=== PATIENT | female | born 1995 ===

== ENCOUNTER 2018-02-06 01:45 | Emergency (ER) | payer OTHER ==
[2018-02-06] MEDS ORDERED: Acetaminoph/Cod 120/12 mg LIQ* 5 ML UDC PO ONE (04:12)
[2018-02-06 04:49] VITALS: BP 0/0
--- NOTE | 2018-02-06 08:18 | RAD ---
Indication: The patient choked on a fish bone Comparison: None. Technique: AP and lateral views of the neck with soft tissue technique. Report: Unremarkable soft tissue contours. No radiographically apparent foreign body is seen. Pharyngeal, laryngeal, and tracheal air columns are normal in contour. The epiglottis is normal. There is nonspecific reversal of the normal cervical lordosis. IMPRESSION: No radiographically apparent foreign body or other acute abnormality. If the patient's symptoms persist, follow-up imaging is recommended.
--- NOTE | 2018-02-06 15:17 | ED ---
Josephine Burris Gabriel, scribed for Kenneth Bullard MD on 02/06/18 at 0252 . Throat Pain/Nasal Congestion - HPI Summary HPI Summary: Patient is a 22 year old F presenting to [facility] accompanied by her boyfriend with a chief complaint of a sensation of fish bone stuck in her throat at 1300 while she was eating. Pt believes she got a bone from an eel stuck in her throat while she was eating. The patient rates the pain 6/10 in severity. The patient is coughing and states she can feel the bone and it is painful. Pt denies any JOSE ALEJANDRO or difficulty swallowing. - History of Current Complaint Chief Complaint: EDForeignBodyEsophag Time Seen by Provider: 02/06/18 02:43 Hx Obtained From: Patient Onset/Duration: Still Present Severity: Moderate Associated Signs And Symptoms: Positive: Negative - Allergies/Home Medications Allergies/Adverse Reactions: Allergies Allergy/AdvReac Type Severity Reaction Status Date / Time No Known Allergies Allergy Verified 02/06/18 01:50 PMH/Surg Hx/FS Hx/Imm Hx Endocrine/Hematology History: Denies: Hx Blood Transfusions, Hx Bone Marrow Disease, Hx Diabetes Cardiovascular History: Denies: Hx Angioplasty, Hx Atrial Fibrillation Neurological History: Denies: Hx CVA, Hx Dementia - Immunization History Date of Tetanus Vaccine: utd Date of Influenza Vaccine: none Infectious Disease History: No Infectious Disease History: Denies: Traveled Outside the [place] in Last 30 Days - Family History Known Family History: Negative: Blood Disorder - Social History Occupation: Student Lives: Dormitory/Roommates Alcohol Use: Weekly Substance Use Type: Reports: None Smoking Status (MU): Never Smoked Tobacco Review of Systems Positive: Other - pain in throat, foreign body Positive: Cough All Other Systems Reviewed And Are Negative: Yes Physical Exam - Summary Physical Exam Summary: Appearance: Well-appearing, no distress, Well-nourished Skin: Warm, color reflects adequate perfusion Head: Normal Head/Face inspection Eyes: Conjunctiva clear ENT: oropharynx is clear. She is TTP at the left anterior pharynx area, no swelling Neck: Supple, no nodes, no JVD. Respiratory: Lungs clear, Normal breath sounds, no respiratory distress Cardio: RRR, No murmur, pulses normal, brisk capillary refill Neuro: Alert, speech normal, sensory/motor intact Psychological: Normal Triage Information Reviewed: Yes Vital Signs On Initial Exam: Initial Vitals Temp Pulse Resp BP Pulse Ox 97.1 F 97 16 133/75 100 02/06/18 01:47 02/06/18 01:47 02/06/18 01:47 02/06/18 01:47 02/06/18 01:47 Vital Signs Reviewed: Yes Diagnostics - Vital Signs Vital Signs Temp Pulse Resp BP Pulse Ox 02/06/18 01:47 97.1 F 97 16 133/75 100 - Laboratory Lab Statement: Any lab studies that have been ordered have been reviewed, and results considered in the medical decision making process. - Radiology soft tissue neck xray Radiology Interpretation Completed By: ED Physician - questionable foreign body at hypopharynx, unclear Re-Evaluation - Re-Evaluation First Eval Re-Evaluation Time: 04:28 Comment: Unclear if there is a FB lodged in oropharynx by soft tissue neck xray. Pt advised to have CT neck to verify FB. pt refusing CT at this time due to cost. Pt refusing to stay for further radiological evalution or possible retrieval at this time. I advised pt that I will confirm findings with radiology at 0700 and call for return if FB identified. Pt advised to return if symptoms worsen with difficulty swallowing or breathing. EENT Course/Dx - Differential Diagnoses Differential Diagnoses: Epiglottitis, Foreign Body, Bert's Angina, Pharyngitis - Diagnoses Provider Diagnoses: Foreign body sensation in throat Discharge - Discharge Plan Condition: Stable Disposition: HOME Prescriptions: Acetaminoph/Cod 120/12 mg LIQ* [Tylenol/Codeine 120/12 LIQ*] 5 ml PO Q4H PRN 3 Days #60 ml MDD 20ml PRN Reason: Pain Patient Education Materials: Esophageal Foreign Body (ED) Referrals: [facility] - Kavin CALIX [Primary Care Provider] - Additional Instructions: Please return to this Emergency Department if symptoms worsen or return. The documentation as recorded by the Josephine wan Gabriel accurately reflects the service I personally performed and the decisions made by , Kenneth Bullard MD.
== END 2018-02-06 04:47 | disposition home or self-care (01) ==
LOC: ED 01:45
DX: R09.89 Other specified symptoms and signs involving the circulatory and respiratory systems (principal); R05 Cough
CPT/HCPCS: 70360; 96372; 99282; A9270-GY